=== PATIENT | female | born 1990 | race Caucasian/White ===

== ENCOUNTER 2016-08-07 15:38 | Emergency (ER) | payer SELFPAY ==
[2016-08-07 16:01] VITALS: BP 110/58
--- NOTE | 2016-08-07 16:43 | UC ---
Back Pain HPI - HPI Summary HPI Summary: TWO WEEKS AGO HAD URINARY FREQUENCY, URGENCY. RESOLVED WITH HYDRATION AND CRANBERRY JUICE. NO FEVER. BEGAN HAVING LOW BACK PAIN AROUND SAME TIME. WENT TO [place], MADE LEFT LOW BACK PAIN WORSE. 4 DAYS AGO BEGAN HAVING URINARY FREQUNCY. NO NEW SEXUAL PARTNERS. NO DISCHARGE. NO HX OF KIDNEY STONES. ON DEPO - History of Current Complaint Chief Complaint: UCGU Stated Complaint: LOWER BACK PAIN Time Seen by Provider: 08/07/16 16:06 Hx Obtained From: Patient, Family/[employer] Hx Last Menstrual Period: depo shot, one year ago Onset/Duration: Gradual Onset, Lasting Weeks, Still Present Timing: Intermittent Severity Initially: Moderate Severity Currently: Moderate Character: Spasmodic Aggravating: Movement, Bending, Walking Associated Signs And Symptoms: Negative: Fever, Numbness, Tingling, Abdominal Pain, Flank Pain, Bladder Incontinence, Bowel Incontinence, Pain with Weight Bearing - Risk Factors Cauda Equina Risk Factors: Negative Epidural Abscess Risk Factors: Negative - Allergies/Home Medications Allergies/Adverse Reactions: Allergies Allergy/AdvReac Type Severity Reaction Status Date / Time Morphine Allergy Rash Verified 08/07/16 16:02 onions Allergy Anaphylatic Uncoded 08/07/16 16:02 Shock PMH/Surg Hx/FS Hx/Imm Hx Previously Healthy: Yes - Surgical History Surgical History: None - Family History Known Family History: Negative: Renal Disease - Social History Occupation: Employed Full-time Lives: With Family Alcohol Use: Occasionally Substance Use Type: None Smoking Status (MU): Heavy Every Day Tobacco Smoker Type: Cigarettes Amount Used/How Often: 1 PPD Household Exposure Type: Cigarettes Cessation Counseling: Patient Advised to Stop Review of Systems Constitutional: Negative Skin: Negative Eyes: Negative ENT: Negative Respiratory: Negative Cardiovascular: Negative Gastrointestinal: Negative Genitourinary: Frequency Motor: Negative Neurovascular: Negative Musculoskeletal: Myalgia Neurological: Negative Psychological: Negative All Other Systems Reviewed And Are Negative: Yes Physical Exam Triage Information Reviewed: Yes Appearance: Well-Appearing, No Pain Distress, Well-Nourished Vital Signs: Initial Vital Signs Temp 98.2 F 08/07/16 15:55 Pulse 78 08/07/16 15:55 Resp 18 08/07/16 15:55 BP 110/58 08/07/16 15:55 Pulse Ox 100 08/07/16 15:55 Vital Signs Reviewed: Yes Eye Exam: Normal Eyes: Positive: Conjunctiva Clear ENT Exam: Normal ENT: Positive: Normal ENT inspection, TMs normal Dental Exam: Normal Neck exam: Normal Neck: Positive: Supple, Nontender, No Lymphadenopathy. Negative: Nuchal Rigidity Respiratory Exam: Normal Respiratory: Positive: Chest non-tender, Lungs clear, Normal breath sounds, No respiratory distress, No accessory muscle use Cardiovascular Exam: Normal Cardiovascular: Positive: RRR, No Murmur, Pulses Normal, Brisk Capillary Refill Abdominal Exam: Normal Abdomen Description: Positive: Nontender, No Organomegaly. Negative: CVA Tenderness (R), CVA Tenderness (L) Musculoskeletal: Positive: Strength Intact, ROM Intact, No Edema, Other: - NEG STRAIGHT LEG RAISE, PALPABLE SPASM IN LEFT GLUTEUS Neurological Exam: Normal Psychological Exam: Normal Skin Exam: Normal Back Pain Course/Dx - Differential Dx/Diagnosis Differential Diagnosis/HQI/PQRI: Strain, Sprain, Other - PIRIFORMITIS Provider Diagnoses: LOW BACK PAIN/SPASM Discharge - Discharge Plan Condition: Stable Disposition: HOME Prescriptions: Cyclobenzaprine TAB* [Flexeril 10 MG TAB*] 10 mg PO BID PRN #10 tab PRN Reason: Spasms Patient Education Materials: Acute Low Back Pain (ED), Muscle Spasm (ED) Forms: *Work Release Referrals: SOBEIDA Duenas [Primary Care Provider] - Additional Instructions: PHYSICAL THERAPY REFERRAL: You have been prescribed physical therapy. Treatments may include stretching, exercise, application of heat or cold, and other modalities. After an injury, PT can reduce swelling and pain. In recovery, PT is used to restore mobility and strength. Your specific treatment goals are: __x___ Reduction of Swelling (EGS, US, ice as needed) __x___ Pain Reduction (EGS, US, ice as needed) __x___ TENS Pack Fitting and Instruction Wound Hydrotherapy ___x__ Preservation of Mobility ___x__ Jewish of Mobility ___x__ Strength Jewish ____x_ Work or Sports Hardening This instruction sheet also serves as your PHYSICAL THERAPY REFERRAL! Please take it with you to the therapist, so he/she will be aware of your diagnosis and treatment plan. You may see the physical therapist of your choice for these treatments, but may wish to check with your insurance to be sure the provider you select is covered. It's important to see the doctor to whom you have been referred for follow up.
== END 2016-08-07 16:45 | disposition home or self-care (01) ==
LOC: UCEAST 15:38
DX: M54.5 Low back pain (principal); R25.2 Cramp and spasm; Z88.5 Allergy status to narcotic agent; F17.210 Nicotine dependence, cigarettes, uncomplicated
CPT/HCPCS: 81003; 84702; 99212; G0463

== ENCOUNTER 2017-10-07 08:23 | Emergency (ER) | payer OTHER ==
[2017-10-07 08:45] VITALS: BP 128/65
--- NOTE | 2017-10-07 09:43 | UC ---
Skin Complaint HPI - HPI Summary HPI Summary: 3 DAYS OF ITCHY RASH SCATTERED OVER HER TRUNK AND EXTREMITIES. WONDERING IF THEY'RE BUG BITES. NO RECENT TRAVEL. HER PETS ARE VACCINATED AND UP-TO-DATE ON FLEA/TICK TREATMENTS. NO NEW SOAPS, LOTIONS, DETERGENTS OR ANY OTHER NEW EXPOSURES SHE IS AWARE OF. IS VERY ANXIOUS. NO FEVER. - History of Current Complaint Chief Complaint: UCSkin Time Seen by Provider: 10/07/17 09:17 Stated Complaint: RASH Hx Obtained From: Patient Hx Last Menstrual Period: 10/03/17 Onset/Duration: Gradual Onset, Lasting Days, Still Present Timing: Constant Onset Severity: Moderate Current Severity: Moderate Pain Intensity: 3 Pain Scale Used: 0-10 Numeric Location: Diffuse Character: Pruritus Aggravating Factor(s): Touch Alleviating Factor(s): Nothing Associated Signs & Symptoms: Positive: Rash - Allergy/Home Medications Allergies/Adverse Reactions: Allergies Allergy/AdvReac Type Severity Reaction Status Date / Time morphine Allergy Rash Verified 10/07/17 08:45 onions Allergy Anaphylatic Uncoded 10/07/17 08:45 Shock Home Medications: Home Medications Pre Shantelle 2 mg PO DAILY WITH MEAL 10/07/17 [History Confirmed 10/07/17] Review of Systems Constitutional: Negative Skin: Rash Respiratory: Negative Cardiovascular: Negative Gastrointestinal: Negative All Other Systems Reviewed And Are Negative: Yes PMH/Surg Hx/FS Hx/Imm Hx Psychological History: Anxiety - Surgical History Surgical History: None Surgery Procedure, Year, and Place: denies - Family History Known Family History: Positive: Hypertension Negative: Renal Disease - Social History Alcohol Use: Occasionally Substance Use Type: Marijuana Smoking Status (MU): Light Every Day Tobacco Smoker Type: Cigarettes Amount Used/How Often: 1 PPD Household Exposure Type: Cigarettes Physical Exam Triage Information Reviewed: Yes Appearance: Well-Appearing, No Pain Distress, Well-Nourished Vital Signs: Initial Vital Signs Temp 98.9 F 10/07/17 08:34 Pulse 84 10/07/17 08:34 Resp 20 10/07/17 08:34 BP 128/65 10/07/17 08:34 Pulse Ox 98 10/07/17 08:34 Vital Signs Reviewed: Yes Eyes: Positive: Conjunctiva Clear ENT: Positive: Hearing grossly normal Neck: Positive: Supple Respiratory: Positive: No respiratory distress, No accessory muscle use Cardiovascular: Positive: Pulses Normal Abdomen Description: Positive: Soft Musculoskeletal: Positive: No Edema Neurological: Positive: Alert Psychological: Positive: Age Appropriate Behavior Skin: Positive: rashes - PINPOINT PAPULAR RASH SCATTERED OVER TRUNK, UPPER EXTREMITIES AND LOWER EXTREMITIES. SOME ASSOCIATED BRUISING AND EXCORIATION. FACE/NECK SPARED. Course/Dx - Course Course Of Treatment: APPEARANCE NOT CONSISTENT WITH ALLERGY OR INFECTIOUS PROCESS. ALSO NOT CONSISTENT WITH BEDBUG BITES. WILL TREAT FOR SCABIES AND HAVE PATIENT FOLLOW-UP WITH DERMATOLOGY IF NOT IMPROVING EXPECTED. HAVE ADVISED HER TO WASH ALL HER CLOTHES, SHEETS AND TOWELS IN HOT WATER AND TO VACUUM THE HOUSE. - Diagnoses Provider Diagnoses: SUSPECT SCABIES Discharge - Sign-Out/Discharge Documenting (check all that apply): Discharge/Admit/Transfer - Discharge Plan Condition: Stable Disposition: HOME Prescriptions: Permethrin [Elimite] 5 % EX ONCE #1 tube Patient Education Materials: Scabies (ED) Forms: *Work Release Referrals: No Primary Care Phys,NOPCP [Primary Care Provider] - Additional Instructions: SUSPECT SCABIES. USE THE ELIMITE FROM HEAD TO TOE. WASH OFF AFTER 10-14 HOURS. MAY REPEAT AFTER 2 WEEKS IF STILL SYMPTOMATIC. FOLLOW-UP WITH DERMATOLOGY IF NOT IMPROVING EXPECTED. WASH ALL CLOTHES, SHEETS AND TOWELS IN HOT WATER. DERMATOLOGY IN [place] DR. CARLOS CRUZ [facility], [facility] [address]; [address] [place] [address] Dr. Vira Holguinister Address: [address] [place] [address] [address] [place] [address] DR[facility] [address] [place] [address] [facility]. Faye Singh DERMATOLOGY IN [place] DR[address] MAE SCHWAB [phone] CALL THE NUMBER BELOW FOR ASSISTANCE IN ESTABLISHING WITH A PCP An additional resource available to assist in finding the appropriate physician for your health care needs is the [facility] ([facility] Marrero). You may contact them by calling [phone]. - Billing Disposition and Condition Condition: STABLE Disposition: Home
== END 2017-10-07 10:00 | disposition home or self-care (01) ==
LOC: UCEAST 08:23
DX: R21 Rash and other nonspecific skin eruption (principal); F41.9 Anxiety disorder, unspecified; Z88.5 Allergy status to narcotic agent; F17.210 Nicotine dependence, cigarettes, uncomplicated; Z82.49 Family history of ischemic heart disease and other diseases of the circulatory system
CPT/HCPCS: 99212; G0463

== ENCOUNTER 2018-01-13 10:12 | Emergency (ER) | payer OTHER ==
[2018-01-13 10:56] VITALS: BP 107/53
--- NOTE | 2018-01-13 11:17 | UC ---
Throat Pain/Nasal Delroy HPI - HPI Summary HPI Summary: 27-year-old female presents with onset of nasal congestion, yellow nasal discharge, sore throat, and a productive cough for yellow sputum since yesterday. Associated with some subjective fever and chills. States she had some posttussive emesis this morning. Denies ear pain or drainage, chest pain, shortness of breath, abdominal pain, nausea, or diarrhea. - History of Current Complaint Chief Complaint: UCGeneralIllness Stated Complaint: FEVER CONGESTION Time Seen by Provider: 01/13/18 10:52 Hx Obtained From: Patient Hx Last Menstrual Period: spotting for two to three weeks (discontinued Depo) ?: No Onset/Duration: Sudden Onset, Lasting Days - 1 Severity: Mild Pain Intensity: 3 Cough: Sputum Appears - Yellow Associated Signs & Symptoms: Positive: Nasal Discharge, Fever - Subjective, Vomiting - Posttussive. Negative: Dysphagia, Wheezing, Hoarseness, Rash - Allergies/Home Medications Allergies/Adverse Reactions: Allergies Allergy/AdvReac Type Severity Reaction Status Date / Time codeine Allergy See Comment Verified 01/13/18 10:51 morphine Allergy Rash Verified 01/13/18 10:51 onion Allergy Anaphylatic Verified 01/13/18 10:51 Shock Home Medications: Home Medications Doxylam/PE/Dm/Acetaminophen/GG [Vicks Dayquil/Nyquil Shonna] 30 ml PO Q6H PRN [History Confirmed 01/13/18] Phenol/Glycerin [Chloraseptic Max Sore Thr] 1 spr MT SEE INSTRUCTIONS PRN [History Confirmed 01/13/18] PMH/Surg Hx/FS Hx/Imm Hx Previously Healthy: Yes - denies significant past medical history - Surgical History Surgical History: None Surgery Procedure, Year, and Place: denies - Family History Known Family History: Positive: Hypertension - Social History Occupation: Employed Full-time Lives: With Family Alcohol Use: Occasionally Substance Use Type: Marijuana Substance Use Comment - Amount & Last Used: Occasionally Smoking Status (MU): Heavy Every Day Tobacco Smoker Type: Cigarettes Amount Used/How Often: 1 PPD Length of Time of Smoking/Using Tobacco: Since Age 15 Household Exposure Type: Cigarettes Review of Systems Constitutional: Fever, Chills, Fatigue Skin: Negative Eyes: Negative ENT: Sore Throat, Nasal Discharge, Sinus Congestion Respiratory: Cough Cardiovascular: Negative Gastrointestinal: Vomiting Is Patient Immunocompromised?: No All Other Systems Reviewed And Are Negative: Yes Physical Exam Triage Information Reviewed: Yes Appearance: Well-Appearing, No Pain Distress, Well-Nourished Vital Signs: Initial Vital Signs Temp 98.1 F 01/13/18 10:48 Pulse 80 01/13/18 10:48 Resp 16 01/13/18 10:48 BP 107/53 01/13/18 10:48 Pulse Ox 100 01/13/18 10:48 Eyes: Positive: Conjunctiva Clear. Negative: Discharge ENT: Positive: Hearing grossly normal, Pharyngeal erythema - Mild erythema, Nasal congestion, Nasal drainage, TMs normal, Uvula midline. Negative: Tonsillar swelling, Tonsillar exudate, Trismus, Muffled voice, Hoarse voice, Sinus tenderness Neck: Positive: Supple, Nontender, No Lymphadenopathy Respiratory: Positive: Chest non-tender, Lungs clear, Normal breath sounds, No respiratory distress Cardiovascular: Positive: RRR, No Murmur Abdomen Description: Positive: Nontender, No Organomegaly, Soft. Negative: CVA Tenderness (R), CVA Tenderness (L), Distended, Guarding Neurological: Positive: Alert Skin Exam: Normal Throat Pain/Nasal Course/Dx - Course Course Of Treatment: 27 year old female with onset of sore throat and URI symptoms yesterday. Her history and exam are consistent with a viral URI therefore recommend symptomatic treatment. - Differential Dx/Diagnosis Differential Diagnosis/HQI/PQRI: Sinusitis, URI, Other - bronchitis, lower respiratory infection Provider Diagnoses: Viral URI Discharge - Sign-Out/Discharge Documenting (check all that apply): Patient Departure All imaging exams completed and their final reports reviewed: No Studies - Discharge Plan Condition: Stable Disposition: HOME Prescriptions: Benzonatate CAP* [Tessalon 100 MG CAP*] 100 mg PO TID PRN #21 cap PRN Reason: Cough Fluticasone NASAL SPRAY 50MCG* [Flonase NASAL SPRAY 50MCG*] 2 spray BOTH NARES DAILY #1 btl Patient Education Materials: Upper Respiratory Infection (ED) Forms: *Work Release Referrals: No Primary Care Phys,NOPCP [Primary Care Provider] - Additional Instructions: Your symptoms are likely from a viral upper respiratory infection. Viral infections do not respond to antibiotics and typically last 7-10 days. Start fluticasone nasal spray 2 sprays each nostril once daily. I would recommend using a saline rinse can't such as Netti pot or NeilMed twice a day to help thin secretions and promote drainage. Use an [id number] decongestant such as Sudafed according to directions to help with the nasal congestion. I provided you a prescription for Tessalon Perles 1 capsule every 8 hours as needed for cough. Use acetaminophen (Tylenol) or ibuprofen (Advil, Motrin) according to directions as needed for any aches, pains, or fever. Drink plenty of fluids to stay well hydrated. Follow-up with a primary care provider in one week if symptoms do not improve. Seek immediate medical attention if you have a persistent fever greater than 100.5 F despite taking acetaminophen or ibuprofen, have severe chest pain, difficulty breathing, persistent vomiting, or any worsening of symptoms. - Billing Disposition and Condition Condition: STABLE Disposition: Home
== END 2018-01-13 11:25 | disposition home or self-care (01) ==
LOC: UCCORT 10:12
DX: J06.9 Acute upper respiratory infection, unspecified (principal); Z88.5 Allergy status to narcotic agent; F17.210 Nicotine dependence, cigarettes, uncomplicated
CPT/HCPCS: 99212; G0463

== ENCOUNTER 2018-05-29 07:15 | Emergency (ER) | payer OTHER ==
[2018-05-29 07:31] VITALS: BP 102/70
--- NOTE | 2018-05-29 07:36 | UC ---
Lower Extremity/Ankle HPI - HPI Summary HPI Summary: SLIPPED IN THE SHOWER LAST NIGHT AND STRUCK RIGHT ANKLE AGAINST THE WALL. THINKS SHE MAY ALSO HAVE TWISTED IT. HAS PAIN AND SWELLING LATERALLY. REPORTS SHE HAS BEEN UNABLE TO WEIGHT-BEAR SINCE THE INCIDENT. - History of Current Complaint Chief Complaint: UCLowerExtremity Stated Complaint: R ANKLE INJURY Time Seen by Provider: 05/29/18 07:35 Hx Obtained From: Patient Hx Last Menstrual Period: 3 month ago Onset/Duration: Sudden Onset, Lasting Hours, Still Present Severity Initially: Moderate Severity Currently: Moderate Pain Intensity: 6 Pain Scale Used: 0-10 Numeric Aggravating Factor(s): Standing, Ambulation Alleviating Factor(s): Rest, Elevation Able to Bear Weight: No - Allergies/Home Medications Allergies/Adverse Reactions: Allergies Allergy/AdvReac Type Severity Reaction Status Date / Time codeine Allergy See Comment Verified 01/13/18 10:51 morphine Allergy Rash Verified 01/13/18 10:51 onion Allergy Anaphylatic Verified 01/13/18 10:51 Shock Home Medications: Home Medications Medroxyprogesterone AC, Micro [Medroxyprogesterone AC Micro] 360 gm IM SEE INSTRUCTIONS 05/29/18 [History Confirmed 05/29/18] PMH/Surg Hx/FS Hx/Imm Hx - Additional Past Medical History Additional PMH: ADHD Psychological History: Anxiety - Surgical History Surgical History: None Surgery Procedure, Year, and Place: denies - Family History Known Family History: Positive: Hypertension Negative: Renal Disease - Social History Alcohol Use: Occasionally Substance Use Type: Marijuana Substance Use Comment - Amount & Last Used: Occasionally Smoking Status (MU): Heavy Every Day Tobacco Smoker Type: Cigarettes Amount Used/How Often: 1 PPD Length of Time of Smoking/Using Tobacco: Since Age 15 Household Exposure Type: Cigarettes - Immunization History Most Recent Tetanus Shot: unsure Review of Systems All Other Systems Reviewed And Are Negative: Yes Constitutional: Positive: Negative Skin: Positive: Bruising Respiratory: Positive: Negative Cardiovascular: Positive: Negative Gastrointestinal: Positive: Negative Musculoskeletal: Positive: Arthralgia, Decreased ROM, Edema Physical Exam Triage Information Reviewed: Yes Appearance: Well-Appearing, No Pain Distress, Well-Nourished Vital Signs: Initial Vital Signs Temp 98.7 F 05/29/18 07:23 Pulse 88 05/29/18 07:23 Resp 18 05/29/18 07:23 BP 102/70 05/29/18 07:23 Pulse Ox 97 05/29/18 07:23 Vital Signs Reviewed: Yes Eyes: Positive: Conjunctiva Clear ENT: Positive: Hearing grossly normal Neck: Positive: Supple Respiratory: Positive: No respiratory distress, No accessory muscle use Cardiovascular: Positive: Pulses Normal Abdomen Description: Positive: Soft Musculoskeletal: Positive: ROM Limited @ - RIGHT ANKLE, Edema @ - RIGHT ANKLE LATERALLY, Other: - TTP RIGHT ANKLE LATERAL MALLEOLUS. ACHILLES INTACT Neurological: Positive: Alert Psychological: Positive: Age Appropriate Behavior Skin: Positive: Other - BRUISING LATERAL RIGHT ANKLE. Negative: Rashes Diagnostics - Radiology RIGHT ANKLE XRAY Radiology Interpretation Completed By: Radiologist Summary of Radiographic Findings: Consider potential lateral supporting ligament injury. Lower Extremity Course/Dx - Differential Dx/Diagnosis Provider Diagnosis: Disorder of ligament, right ankle Discharge - Sign-Out/Discharge Documenting (check all that apply): Patient Departure All imaging exams completed and their final reports reviewed: Yes - Discharge Plan Condition: Stable Disposition: HOME Patient Education Materials: Ankle Sprain (ED) Forms: *Work Release Referrals: Mukund Edward MD [Medical Doctor] - 3 Days Additional Instructions: X-RAY TODAY CONCERNING FOR POTENTIAL LATERAL SUPPORTING LIGAMENT INJURY OF YOUR RIGHT ANKLE. CALL ORTHOPEDICS TODAY TO SCHEDULE A FOLLOW-UP APPOINTMENT. WEAR THE CAM BOOT AND USE THE CRUTCHES TO HELP WITH MOBILITY. REST, ICE, ELEVATE. - Billing Disposition and Condition Condition: STABLE Disposition: Home
== END 2018-05-29 08:28 | disposition home or self-care (01) ==
LOC: UCEAST 07:15
DX: M24.271 Disorder of ligament, right ankle (principal); F17.210 Nicotine dependence, cigarettes, uncomplicated; F90.9 Attention-deficit hyperactivity disorder, unspecified type; Z88.5 Allergy status to narcotic agent; Z91.09 Other allergy status, other than to drugs and biological substances; W22.01XA Walked into wall, initial encounter; Y92.9 Unspecified place or not applicable
CPT/HCPCS: 99212; G0463

== ENCOUNTER 2018-08-31 22:23 | Emergency (ER) | payer OTHER ==
--- NOTE | 2018-08-31 23:38 | ED ---
Lower Extremity - HPI Summary HPI Summary: 28-year-old female states that she was clocked out on break from her job when she stepped on a pot hole and had an inversion injury to her left ankle. She fell down but did not injure anything else. Most of her pain is at the area of her lateral ankle. She denies foot pain or knee pain. She has been able to ambulate though with some difficulty. She denies any major swelling or breaks in the skin. - History of Current Complaint Chief Complaint: EDExtremityLower Stated Complaint: LT ANKLE INJURY PER PT Time Seen by Provider: 08/31/18 23:30 Hx Obtained From: Patient Hx Last Menstrual Period: 3 month ago Pain Intensity: 8 - Allergies/Home Medications Allergies/Adverse Reactions: Allergies Allergy/AdvReac Type Severity Reaction Status Date / Time codeine Allergy See Comment Verified 08/31/18 22:28 morphine Allergy Rash Verified 08/31/18 22:28 onion Allergy Anaphylatic Verified 08/31/18 22:28 Shock Home Medications: Home Medications NK [No Home Medications Reported] 08/31/18 [History Confirmed 08/31/18] PMH/Surg Hx/FS Hx/Imm Hx Previously Healthy: Yes Endocrine/Hematology History: Denies: Hx Diabetes, Hx Thyroid Disease Cardiovascular History: Denies: Hx Hypertension Respiratory History: Denies: Hx Asthma, Hx Chronic Obstructive Pulmonary Disease (COPD) GI History: Denies: Hx Ulcer - Surgical History Surgery Procedure, Year, and Place: denies Infectious Disease History: No Infectious Disease History: Denies: Hx Hepatitis, Hx Human Immunodeficiency Virus (HIV), Traveled Outside the [place] in Last 30 Days - Family History Known Family History: Positive: Hypertension Negative: Renal Disease - Social History Occupation: Employed Full-time Alcohol Use: Occasionally Substance Use Type: Reports: Marijuana Substance Use Comment - Amount & Last Used: Occasionally Smoking Status (MU): Heavy Every Day Tobacco Smoker Type: Cigarettes Amount Used/How Often: 1 PPD Length of Time of Smoking/Using Tobacco: Since Age 15 Review of Systems Positive: Arthralgia, Decreased ROM. Negative: Edema Skin: Negative Negative: Weakness, Numbness All Other Systems Reviewed And Are Negative: Yes Physical Exam Triage Information Reviewed: Yes Vital Signs On Initial Exam: Initial Vitals Temp Pulse Resp BP Pulse Ox 98.6 F 84 16 118/88 100 08/31/18 22:26 08/31/18 22:26 08/31/18 22:26 08/31/18 22:26 08/31/18 22:26 Vital Signs Reviewed: Yes Appearance: Positive: Well-Appearing Skin: Positive: Warm, Skin Color Reflects Adequate Perfusion, Dry Neck: Positive: Nontender Respiratory/Lung Sounds: Positive: Clear to Auscultation Cardiovascular: Positive: RRR Musculoskeletal: Positive: Other - Tenderness at the left anterior talofibular ligaments without instability, deformity or swelling. No pain at the knee or proximal fibula. No pain at the fifth metatarsal or talus. Neurological: Positive: Sensory/Motor Intact, Alert, Oriented to Person Place, Time, Other - Antalgic gait Psychiatric: Positive: Normal Diagnostics - Vital Signs Vital Signs Temp Pulse Resp BP Pulse Ox 08/31/18 22:26 98.6 F 84 16 118/88 100 - Laboratory Lab Statement: Any lab studies that have been ordered have been reviewed, and results considered in the medical decision making process. - Radiology L ankle Radiology Interpretation Completed By: ED Physician - No fx Lower Extremity Course/Dx - Course Course Of Treatment: X-rays negative. Josue wrap applied here. Rice, NSAID. Return to work. - Diagnoses Differential Diagnosis/HQI/PQRI: Positive: Fracture (Closed), Sprain, Strain Provider Diagnoses: Mild sprain of left ankle Discharge - Sign-Out/Discharge Documenting (check all that apply): Patient Departure Patient Received Moderate/Deep Sedation with Procedure: No - Discharge Plan Condition: Improved Disposition: HOME Patient Education Materials: Ankle Sprain (ED) Forms: *Work Release Referrals: Care [facility] [Outside] [facility] [Outside] Additional Instructions: Rest, ice, elevate while at rest, ibuprofen for discomfort and Josue wrap for stability. Obtain a more formal brace for use in any sporting activities. These can be obtained from the pharmacy. Return if worse, new symptoms or other concerns. Weight-bear as tolerated. - Billing Disposition and Condition Condition: IMPROVED Disposition: Home - Attestation Statements Document Initiated by Caleb: No
[2018-08-31 23:42] VITALS: BP 121/69
== END 2018-08-31 23:41 | disposition home or self-care (01) ==
LOC: ED 22:23
DX: S93.402A Sprain of unspecified ligament of left ankle, initial encounter (principal); W18.00XA Striking against unspecified object with subsequent fall, initial encounter; Y92.9 Unspecified place or not applicable; Z88.6 Allergy status to analgesic agent; F17.210 Nicotine dependence, cigarettes, uncomplicated
CPT/HCPCS: 99282

== ENCOUNTER 2021-03-11 16:28 | Inpatient (IN) ==
[2021-03-11] MEDS ORDERED: Buffered Lidocaine 1% SYRIN 1 ml INTRADERM ONE (17:14)
[2021-03-11] MEDS ORDERED: Lactated Ringers 1000 ml BAG 1,000 ML IV ONE ×2 (17:14→22:49)
[2021-03-11] MEDS ORDERED: Nalbuphine 10 MG/ML 1 ML VIAL IV ONE (17:20)
[2021-03-11] MEDS ORDERED: Promethazine INJ(RESTRICTED) 25 MG/ML 1 ml VIAL IV ONE (17:21)
[2021-03-11 17:47] LABS: Urine Benzodiazepine Screen None Detected (None Detect); Urine Cannabinoids Screen Presumptive Positive (None Detect); Urine Opiates Screen None Detected (None Detect)
[2021-03-11] MEDS ORDERED: Oxytocin in LR 20 UNITS/1,000 ML BAG IVPB SCH (18:00)
[2021-03-11 18:38] LABS: ABS Eosinophils 0.1 10^3/ul (0-0.6); ABS Lymphocytes 2.7 10^3/ul (1.0-4.8); ABS Monocytes 1.1 10^3/ul (0-0.8); ABS Neutrophils 12.2 10^3/ul (1.5-7.7); Eosinophil % 0.7 %; Hematocrit 36 % (35-47); Hemoglobin 12.2 g/dL (12.0-16.0); Lymphocyte % 16.8 %; Mean Corpuscular HGB Conc 34 g/dL (31-36); Mean Corpuscular Hemoglobin 31 pg (27-31); Mean Corpuscular Volume 92 fL (80-97); Mean Platelet Volume 8.7 fL (7.4-10.4); Platelet Count 272 10^3/uL (150-450); Red Cell Distribution Width 14 % (10-15); White Blood Count 16.2 10^3/uL (3.5-10.8)
[2021-03-11] MEDS ORDERED: OBEPIDURAL 250 ML EPIDURAL ONE (21:01)
[2021-03-11] MEDS: Lactated Ringers 1000 ml BAG 1,000 ML IV SCH ×2 (21:08→23:01)
[2021-03-11] MEDS ORDERED: Calcium Carb (TUMS) 500 mg CHEW TAB PO PRN (21:30)
[2021-03-11] MEDS ORDERED: fentaNYL 100 mcg/2 ml 50 MCG/ML VIAL ONE (22:02)
[2021-03-11] MEDS ORDERED: Sodium Citrate/Citric Acid LIQ 15 ML UDC PO PRN (22:49)
[2021-03-11] MEDS ORDERED: Lactated Ringers 1000 ml BAG 500 ML IV PRN (22:49)
[2021-03-11] MEDS ORDERED: Phenylephrine 40 mcg/mL 10mL (400mcg) SYRINGE IV PUSH PRN ×2 (22:49)
[2021-03-11] MEDS ORDERED: OBEPIDURAL 250 ML EPIDURAL SCH (23:00)
[2021-03-11] MEDS ORDERED: Lactated Ringers 1000 ml BAG 1,000 ML IV SCH (23:00)
[2021-03-11 23:44] LABS: Urine Appearance Cloudy; Urine Bilirubin Negative (Negative); Urine Blood Negative (Negative); Urine Color Yellow; Urine Glucose Negative (Negative); Urine Ketones 1+ (Negative); Urine Nitrite Negative (Negative); Urine Protein Negative (Negative); Urine Specific Gravity 1.014 (1.002-1.030); Urine Urobilinogen Negative (Negative)
[2021-03-12] MEDS ORDERED: Ondansetron 4 mg VIAL 2 MG/ML 2 ml VIAL IV PRN (00:59)
[2021-03-12] MEDS ORDERED: Bupivacaine 0.25% SDV PF 10 ML VIAL INJ ONE (01:05)
[2021-03-12] MEDS ORDERED: LORazepam 2 mg VIAL 1 ml IV PUSH ONE ×3 (01:37→02:10)
[2021-03-12] MEDS ORDERED: Lorazepam PYXIS KEY PRN ×3 (01:37→02:10)
[2021-03-12] MEDS ORDERED: fentaNYL 100 mcg/2 ml 50 MCG/ML VIAL ONE (01:38)
[2021-03-12] MEDS ORDERED: Lidocaine 2% PF 10 ML AMP ONE (01:38)
[2021-03-12] MEDS ORDERED: LORazepam 2 mg VIAL 1 ml ONE (02:09)
[2021-03-12] MEDS: Lactated Ringers 1000 ml BAG 1,000 ML IV SCH (03:00)
[2021-03-12] MEDS ORDERED: Oxytocin 10 UNITS/ML 1 ML VIAL IM ONE (05:11)
[2021-03-12] MEDS: Witch Hazel PAD JAR TOPICAL PRN (05:33)
[2021-03-12] MEDS: Dibucaine 1% OINT 28.35 GM TUBE PR PRN (05:33)
[2021-03-12] MEDS ORDERED: Oxytocin 10 UNITS/ML 1 ML VIAL ONE (06:56)
[2021-03-13 06:59] LABS: ABS Basophils 0.1 10^3/ul (0-0.2); ABS Eosinophils 0.2 10^3/ul (0-0.6); ABS Monocytes 0.9 10^3/ul (0-0.8); ABS Neutrophils 12.7 10^3/ul (1.5-7.7); Hematocrit 32 % (35-47); Hemoglobin 10.8 g/dL (12.0-16.0); Lymphocyte % 12.6 %; Mean Corpuscular HGB Conc 34 g/dL (31-36); Mean Corpuscular Hemoglobin 32 pg (27-31); Mean Corpuscular Volume 93 fL (80-97); Mean Platelet Volume 8.6 fL (7.4-10.4); Platelet Count 234 10^3/uL (150-450); Red Blood Count 3.39 10^6 /uL (3.70-4.87); Red Cell Distribution Width 14 % (10-15); White Blood Count 15.8 10^3/uL (3.5-10.8)
[2021-03-13] MEDS: Witch Hazel PAD JAR TOPICAL PRN (18:33)
[2021-03-13] MEDS: Dibucaine 1% OINT 28.35 GM TUBE PR PRN (18:34)
[2021-03-14 08:25] VITALS: BP 132/67
[2021-03-14] MEDS: Witch Hazel PAD JAR TOPICAL PRN (08:46)
[2021-03-14] MEDS: Dibucaine 1% OINT 28.35 GM TUBE PR PRN (08:46)
== END 2021-03-14 12:30 | disposition home or self-care (01) | DRG 560 ==
LOC: MCHOBOUT 16:28 → MCHOB 16:53
PROVIDERS: ADMIT Midwife; ATTEND Midwife

== ENCOUNTER 2022-03-25 09:46 | Inpatient (IN) ==
[2022-03-25 10:46] LABS: ABS Basophils 0.1 10^3/ul (0-0.2); ABS Eosinophils 0.3 10^3/ul (0-0.6); ABS Lymphocytes 2.1 10^3/ul (1.0-4.8); ABS Monocytes 0.6 10^3/ul (0-0.8); ABS Neutrophils 4.7 10^3/ul (1.5-7.7); Eosinophil % 3.4 %; Hematocrit 43 % (35-47); Hemoglobin 14.3 g/dL (12.0-16.0); Lymphocyte % 27.5 %; Mean Corpuscular HGB Conc 34 g/dL (31-36); Mean Corpuscular Hemoglobin 30 pg (27-31); Mean Corpuscular Volume 90 fL (80-97); Mean Platelet Volume 8.5 fL (7.4-10.4); Platelet Count 293 10^3/uL (150-450); Red Blood Count 4.76 10^6 /uL (3.70-4.87); Red Cell Distribution Width 13 % (10-15); White Blood Count 7.8 10^3/uL (3.5-10.8)
[2022-03-25 10:51] LABS: Urine Appearance Cloudy; Urine Bilirubin Negative (Negative); Urine Blood Negative (Negative); Urine Color Amber; Urine Glucose Negative (Negative); Urine Ketones Trace (Negative); Urine Nitrite Negative (Negative); Urine Protein 1+(30 mg/dL) (Negative); Urine Specific Gravity 1.031 (1.002-1.030); Urine Urobilinogen Negative (Negative)
[2022-03-25 11:01] LABS: Urine Benzodiazepine Screen None Detected (None Detect); Urine Cannabinoids Screen Presumptive Positive (None Detect); Urine Opiates Screen None Detected (None Detect)
[2022-03-25 11:05] LABS: Urine Bacteria Absent (Absent); Urine Red Blood Cell Trace(0-2/hpf) (Absent); Urine Squamous Epithelial Cell Present (Absent); Urine White Blood Cell Trace(0-5/hpf) (Absent)
[2022-03-25 12:01] LABS: ALT 14 U/L (7-52); AST 17 U/L (13-39); Acetaminophen < 15 mcg/mL; Albumin 4.6 g/dL (3.2-5.2); Albumin/Globulin Ratio 2.2 (1-3); Alcohol, S < 13 mg/dL (<13); Alkaline Phosphatase 59 U/L (35-149); Anion Gap 5 mmol/L (2-11); Blood Urea Nitrogen 12 mg/dL (6-24); CO2 Carbon Dioxide 27 mmol/L (22-32); Calcium 9.5 mg/dL (8.6-10.3); Chloride 106 mmol/L (101-111); Globulin 2.1 g/dL (2-4); Glucose 81 mg/dL (70-100); Potassium 4.3 mmol/L (3.5-5.0); Salicylate < 2.50 mg/dL (<30); Sodium 138 mmol/L (135-145); Total Protein 6.7 g/dL (6.4-8.9)
[2022-03-25 12:05] LABS: HCG Pregnancy < 0.60 mIU/mL
[2022-03-25 12:13] LABS: TSH Ultra Thyroid Stim Horm 0.86 mcIU/mL (0.34-5.60)
[2022-03-25] MEDS ORDERED: Lorazepam PYXIS KEY PRN ×2 (14:16→18:26)
[2022-03-25] MEDS ORDERED: LORazepam 2 mg VIAL 1 ml IM ONE ×2 (14:16→18:10)
[2022-03-25] MEDS ORDERED: Al Hydrox/Mg Hydrox/Simet LIQ 30 ML UDC PO PRN (14:20)
[2022-03-25] MEDS ORDERED: LORazepam 2 mg VIAL 1 ml ONE (18:10)
[2022-03-25] MEDS ORDERED: Haloperidol 5 mg/ml SDV IV/IM 5 MG/ML AMP ONE (18:10)
[2022-03-25] MEDS ORDERED: Haloperidol 5 mg/ml SDV IV/IM 5 MG/ML AMP IM ONE (18:10)
[2022-03-26 07:31] LABS: HDL Cholesterol 39.3 mg/dL
[2022-03-26] MEDS ORDERED: OLANZapine IM (NF) 10 MG VIAL IM ONE (14:19)
[2022-03-26] MEDS ORDERED: OLANZapine 10 mg TAB*ODT ONE (14:19)
[2022-03-26] MEDS ORDERED: Nicotine GUM 4MG FRUIT FLAVOR PO ONE (14:32)
[2022-03-26] MEDS ORDERED: Haloperidol 5 mg/ml SDV IV/IM 5 MG/ML AMP IM ONE (15:11)
[2022-03-26] MEDS ORDERED: LORazepam 2 mg VIAL 1 ml IM ONE (15:13)
[2022-03-26] MEDS ORDERED: Lorazepam PYXIS KEY PRN (15:13)
[2022-03-28 11:15] VITALS: BP 120/95
== END 2022-03-28 14:00 | disposition home or self-care (01) | DRG 753 ==
LOC: ED 09:46 → EDHOLD 14:20 → BSU 16:29
PROVIDERS: ADMIT Psychiatry & Neurology Psychiatry; ATTEND Psychiatry & Neurology Psychiatry